=== PATIENT | female | born 1985 | race American Indian/Alaskan Native ===

== ENCOUNTER 2017-07-19 09:20 | Inpatient (IN) | payer OTHER ==
[2017-07-19] MEDS ORDERED: PEPCID IV SCH (10:41)
[2017-07-19] MEDS ORDERED: BICITRA PO SCH (10:41)
[2017-07-19] MEDS ORDERED: REGLAN IV SCH (10:41)
[2017-07-19] MEDS ORDERED: LACTATED RINGERS 2,000 ML ONE (10:46)
[2017-07-19] MEDS ORDERED: LACTATED RINGERS 1,000 ML IV SCH (11:00)
--- NOTE | 2017-07-19 11:01 | History and Physical Report ---
History of Present Illness Date of examination: 07/19/17 Date of admission: 07/19/17 09:20 Chief complaint: C section for breech presentation History of present illness: Pt is a 32yo BF EDC 07/23/17; EGA 39 3/7 weeks presents for a C section due to persistent breech presentation. She received late care at [facility] since 33 weeks as a transfer pt, and course has been unremarkable except for persistent breech presentation. records are available and GBS is negative. Past History Past Medical History: no pertinent history Past Surgical History: no surgical history Family/Genetic History: none Social history: no significant social history, - Obstetrical History Expected Date of Delivery: 07/23/17 Actual Gestation: 39 Week(s) 3 Day(s) : 1 Medications and Allergies Allergies Allergy/AdvReac Type Severity Reaction Status Date / Time Penicillins Allergy Hives Verified 07/19/17 11:06 Home Medications Medication Instructions Recorded Confirmed Last Taken Type Vitamin Tablet 1 tab PO QDAY 07/19/17 07/19/17 07/18/17 14:00 History Active Meds: Active Medications Citric Acid/Sodium Citrate (Bicitra) 30 ml PO ONCE NANCY Stop: 07/19/17 23:00 Famotidine (Pepcid) 20 mg IV ONCE NANCY Stop: 07/19/17 23:00 Lactated Ringer's (Lactated Ringers) 1,000 mls @ 2,250 mls/hr IV PREOP NANCY Stop: 07/20/17 11:27 Last Admin: 07/19/17 10:49 Dose: 2,250 mls/hr Oxytocin/Sodium Chloride (Pitocin/Ns 20 Unit/1000ml Drip) 20 units in 1,000 mls @ 0 mls/hr IV TITR NANCY PRN Reason: As Directed Metoclopramide HCl (Reglan) 10 mg IV ONCE NANCY Stop: 07/19/17 23:00 Review of Systems All systems: negative - Vital Signs Vital signs: Vital Signs Temp Pulse Resp BP Pulse Ox 98.4 F 80 18 119/78 98 07/19/17 09:52 07/19/17 09:52 07/19/17 09:52 07/19/17 09:52 07/19/17 09:52 Temp Pulse Resp BP Pulse Ox 98.4 F 81 18 119/78 100 07/19/17 09:52 07/19/17 10:33 07/19/17 09:52 07/19/17 09:52 07/19/17 10:33 - Physical Exam Breasts: Positive: deferred Cardiovascular: Regular rate Lungs: Positive: Clear to auscultation Abdomen: Positive: normal appearance Genitourinary (Female): Positive: normal external genitalia Vagina: Positive: normal moisture Uterus: Positive: enlarged Extremities: Positive: normal - Obstetrical FHR: category 1 Uterine Contraction Monitor Mode: External Results Result Diagrams: 07/19/17 10:30 All other labs normal. Ultrasound: image reviewed (Breech) Assessment and Plan - Patient Problems (1) 39 weeks gestation of Onset Date: 07/19/17 Current Visit: Yes Status: Acute Plan to address problem: A: IUP @ 39 3/7 weeks Breech presentation P: Admit to L&D for Primary C Section (2) Breech presentation Onset Date: 07/19/17 Current Visit: Yes Status: Acute Qualifiers: Fetus number: single or unspecified fetus Qualified Code(s): O32.1XX0 - Maternal care for breech presentation, not applicable or unspecified
[2017-07-19 11:13] LABS: Basophils # (Auto) 0.1 K/mm3 (0.0-0.1); Basophils % (Auto) 0.8 % (0.0-1.8); Eosinophils # (Auto) 0.1 K/mm3 (0.0-0.4); Hematocrit 38.5 % (30.3-42.9); Hemoglobin 12.8 gm/dl (10.1-14.3); Lymphocytes # (Auto) 0.9 K/mm3 (1.2-5.4); Lymphocytes % (Auto) 14.1 % (13.4-35.0); Mean Corpuscular HGB Conc 33 % (30-34); Mean Corpuscular Hemoglobin 28 pg (28-32); Mean Corpuscular Volume 85 fl (79-97); Monocytes # (Auto) 0.6 K/mm3 (0.0-0.8); Monocytes % (Auto) 9.4 % (0.0-7.3); Platelet Count 228 K/mm3 (140-440); Red Blood Count 4.54 M/mm3 (3.65-5.03); Red Cell Distribution Width 13.6 % (13.2-15.2)
[2017-07-19] MEDS ORDERED: CLEOCIN 900 MG/50 mL 900 MG/50 ML BAG IV ONE (11:33)
[2017-07-19] MEDS ORDERED: WATER FOR IRRIG STERILE IR ONE (12:00)
[2017-07-19] MEDS ORDERED: NACL 0.9% IR ONE (12:00)
[2017-07-19] MEDS ORDERED: BENADRYL IV PRN (12:03)
[2017-07-19] MEDS ORDERED: NARCAN 0.4 MG/1 ML IV PRN ×2 (12:03→13:55)
[2017-07-19] MEDS ORDERED: ZOFRAN IV PRN (12:03)
[2017-07-19] MEDS ORDERED: MORPHINE IV PRN (12:03)
[2017-07-19] MEDS ORDERED: PHENERGAN PR PRN (12:03)
--- NOTE | 2017-07-19 12:03 | Anesthesia Day of Surgery ---
Anesthesia Day of Surgery - Day of Surgery Patient Examined: Yes Patient H&P Reviewed: Yes Patient is NPO: Yes
--- NOTE | 2017-07-19 12:03 | Anesthesia Consultation ---
Anesthesia Consult and Med Hx Date of service: 07/19/17 - Airway Anesthetic Teeth Evaluation: Good ROM Head & Neck: Adequate Mental/Hyoid Distance: Adequate Mallampati Class: Class II Intubation Access Assessment: Probably Good - Pre-Operative Health Status ASA Pre-Surgery Classification: ASA2 Proposed Anesthetic Plan: Epidural, Spinal - Pulmonary Hx Asthma: No COPD: No Hx Pneumonia: No - Cardiovascular System Hx Hypertension: No - Central Nervous System Hx Seizures: No Hx Psychiatric Problems: No - Endocrine Hx Renal Disease: No Hx End Stage Renal Disease: No Hx Hypothyroidism: No Hx Hyperthyroidism: No - Hematic Hx Sickle Cell Disease: No - Other Systems Hx Alcohol Use: No
[2017-07-19] MEDS ORDERED: MORPHINE ONE (12:08)
[2017-07-19] MEDS ORDERED: GARAMYCIN/NS 80 MG/100 ML 100 ML IV SCH (12:30)
[2017-07-19] MEDS ORDERED: CLEOCIN 900 MG/50 mL 900 MG/50 ML BAG IV SCH (13:00)
[2017-07-19] MEDS ORDERED: SODIUM CHLORIDE FLUSH SYRINGE 10 ML IV NR (13:00)
[2017-07-19] MEDS ORDERED: NEO SYNEPHRINE/NS Syringe(OR USE) IV ONE (13:23)
[2017-07-19] MEDS: PITOCin/NS 20 UNIT/1000ML DRIP 20 UNITS/1,000 ML BAG IV SCH ×2 (13:28→13:29)
[2017-07-19] MEDS ORDERED: LANSINOH TP PRN (13:55)
[2017-07-19] MEDS ORDERED: MILK OF MAGNESIA PO PRN (13:55)
[2017-07-19] MEDS ORDERED: MYLICON PO PRN (13:55)
[2017-07-19] MEDS ORDERED: TUCKS PAD TP PRN (13:55)
[2017-07-19] MEDS ORDERED: NORCO 5/325 PO PRN (13:55)
[2017-07-19] MEDS ORDERED: SODIUM CHLORIDE FLUSH SYRINGE 10 ML IV SCH (14:00)
[2017-07-19] MEDS ORDERED: PITOCin/NS 20 UNIT/1000ML DRIP 20 UNITS/1,000 ML BAG IV SCH (14:00)
--- NOTE | 2017-07-19 14:03 | Post Anesthesia Evaluation ---
- Post Anesthesia Evaluation Patient Participated: Yes Airway Patent: Yes Stable Respiratory Function: Yes Temp > 96.8F: Yes Pain Manageable: Yes Adequeate Hydration: Yes Anesthesia Complications: No Block Receding Appropriately: Yes
--- NOTE | 2017-07-19 14:07 | Operative Report ---
Operative Report Operative Report: Date of procedure: 07/19/2017 Pre-operative diagnosis: 1. Intrauterine at 39-3/7 weeks 2. Breech presentation Post-operative diagnosis: Same with uterine fibroids Procedure name(s): Primary low transverse section Surgeon: Kam Verdin MD Java Jsf Developer: None Anesthesia: Spinal anesthesia by Dr. Massey EBL: 500 mls Findings: A 2961 g female Apgars 8 at 1 minute and 9 at 5 minutes. Roshan breech presentation. Clear amniotic fluid. Uterus with multiple small serosal myomas. Normal tubes and ovaries bilaterally. Procedure: After the patient was prepped and draped in usual sterile fashion, and after satisfactory level of epidural anesthesia was obtained, the skin knife was used to make a transverse skin incision. The incision was excised down to layer of the fascia, which was nicked in the midline and extended laterally using the Bovie cautery. The rectus muscles were dissected off the rectus fascia both superiorly and inferiorly. The rectus bellies in the midline, and the peritoneum was entered under direct visualization. The peritoneal incision was extended superiorly and inferiorly. A bladder flap was created and the bladder blade was then placed. The uterus was scored in a curvilinear linear fashion, entered in the midline revealing clear amniotic fluid. The infant's roshan breech was delivered onto the surgical field, followed by the rest of the infant's body, then the oropharynx and nasopharynx were bulb suctioned. The cord was doubly clamped and cut and the was handed to the waiting respiratory team. The placenta was manually removed from the uterus, and the uterus removed from its normal anatomical position. The uterus has multiple small fibroids on the serosal layer. After gentle uterine lavage, the incision was inspected and found to be without extensions. It was then closed in 2 layers using 0 Vicryl suture in a running interlocking fashion , the second layer imbricating the first. After good hemostasis was achieved, copious amounts or irrigation was performed, and the gutters were suctioned free of blood and blood clots. Tisseel sealant was sprayed across the uterine incision. The uterus was then returned to its normal anatomical position, and after excellent hemostasis assured, the peritoneum was re-approximated using 3- 0 Vicryl suture in a running interlocking fashion, and then the rectus muscles were re-approximated using 3-0 Vicryl suture in a [id number] configuration. The fascia was then re-approximated using 0 Vicryl suture in running interlocking fashion. The subcutaneous layer was made hemostatic using Bovie cautery, the Tisseel sealant was sprayed across the fascial incision and the skin edges re-approximated using 4-0 Vicryl suture in a sub-cuticular fashion. Patient tolerated the procedure well was transported to recovery in stable condition.
[2017-07-19] MEDS: D5LR 1,000 ML IV SCH ×2 (14:22→22:58)
[2017-07-19] MEDS: TORADOL IV PRN (15:20)
[2017-07-19] MEDS: CLEOCIN 600 MG/50 mL 600 MG/50 ML BAG IV SCH (18:37)
[2017-07-20] MEDS: TORADOL IV PRN (01:36)
[2017-07-20] MEDS: CLEOCIN 600 MG/50 mL 600 MG/50 ML BAG IV SCH (01:36)
[2017-07-20 05:12] LABS: Hematocrit 34.4 % (30.3-42.9); Hemoglobin 11.3 gm/dl (10.1-14.3)
[2017-07-20] MEDS ORDERED: BOOSTRIX IM ONE (06:00)
--- NOTE | 2017-07-20 09:25 | Progress Note ---
Assessment and Plan - Patient Problems (1) 39 weeks gestation of Onset Date: 07/19/17 Current Visit: Yes Status: Resolved (2) Breech presentation Onset Date: 07/19/17 Current Visit: Yes Status: Resolved Qualifiers: Fetus number: single or unspecified fetus Qualified Code(s): O32.1XX0 - Maternal care for breech presentation, not applicable or unspecified (3) Status post Onset Date: 07/20/17 Current Visit: Yes Status: Resolved Plan to address problem: A: S/P C Section - POD #1 Doing well P: Continue RPOC Anticipate discharge in 24-48hrs Subjective - Subjective Date of service: 07/20/17 Principal diagnosis: s/p C Section - POD #1 Interval history: Pt is feeling well without complaints. Bleeding improved.Tolerating a liquid diet without nausea or vomiting. Patient reports: appetite normal, voiding normally, dizzy ambulation, ambulating normally, no flatus [place]: doing well, bottle feeding Objective - Vital Signs Latest vital signs: Vital Signs Temp Pulse Resp BP BP Pulse Ox 07/20/17 03:00 99 F 78 18 116/74 07/20/17 00:04 98.9 F 83 18 117/70 07/19/17 21:00 98.5 F 77 18 112/70 07/19/17 16:22 97.6 F 64 18 102/70 97 07/19/17 14:35 97.8 F 97 H 18 133/86 98 07/19/17 14:20 95 H 29 H 136/85 100 07/19/17 14:16 97.6 F 07/19/17 14:15 90 15 128/87 100 07/19/17 14:10 90 16 132/89 100 07/19/17 14:05 81 20 133/86 100 07/19/17 14:00 88 21 128/85 100 07/19/17 13:55 92 H 22 134/88 99 07/19/17 13:50 68 18 116/74 99 07/19/17 13:45 89 14 135/89 100 07/19/17 13:40 75 14 131/86 99 07/19/17 13:35 84 19 126/89 99 07/19/17 13:30 93 H 15 125/87 100 07/19/17 13:25 84 12 119/79 99 07/19/17 13:23 99 07/19/17 13:21 97.6 F 07/19/17 10:33 81 100 07/19/17 10:28 99 H 99 07/19/17 10:23 86 99 07/19/17 10:15 79 99 07/19/17 10:10 82 98 07/19/17 10:05 82 99 07/19/17 10:00 86 99 07/19/17 09:52 98.4 F 80 18 119/78 98 Intake and Output 07/19/17 07/20/17 07/20/17 22:59 06:59 14:59 Intake Total 1170 200 Output Total 275 800 Balance 895 -600 Intake: IV 1050 CLEOCIN 600 MG/50 mL 600 50 mg In 50 ml @ 100 mls/hr IV Q8H NANCY Rx#:[id number] D5lr 1,000 ml @ 125 mls/ 1000 hr IV DIRECT NANCY Rx#: [id number] Oral 120 Intake, Free Water 200 Output: Urine 275 800 Indwelling Catheter 275 800 Other: Total, Intake Amount 120 Total, Output Amount 275 800 - Exam Breasts: Present: deferred Cardiovascular: Present: Regular rate Lungs: Present: Clear to auscultation Abdomen: Present: normal appearance, soft Uterus: Present: normal, firm, fundal height below umbilicus Extremities: Present: normal Incision: Present: normal, dry, intact, dressed - Labs Labs: Abnormal lab results 07/19/17 Range/Units 10:30 [place] % (Auto) 9.4 H (0.0-7.3) % Lymph # 0.9 L (1.2-5.4) K/mm3 Seg Neutrophils % 74.7 H (40.0-70.0) % Laboratory Tests 07/19/17 07/19/17 07/20/17 10:30 10:30 04:25 WBC 6.4 RBC 4.54 Hgb 12.8 11.3 Hct 38.5 34.4 MCV 85 MCH 28 MCHC 33 RDW 13.6 Plt Count 228 Lymph % (Auto) 14.1 [place] % (Auto) 9.4 H Eos % (Auto) 1.0 Baso % (Auto) 0.8 Lymph # 0.9 L [place] # 0.6 Eos # 0.1 Baso # 0.1 Seg Neutrophils % 74.7 H Seg Neutrophils # 4.7 Blood Type A POSITIVE Antibody Screen Negative
[2017-07-20] MEDS: MOTRIN PO PRN (10:22)
[2017-07-20] MEDS: FEOSOL PO SCH (10:22)
[2017-07-20] MEDS: PRENATAL VITAMIN PO SCH (10:22)
[2017-07-20] MEDS ORDERED: M-M-R II VACCINE SUB-Q ONE (13:57)
[2017-07-20] MEDS: PERCOCET 5/325 PO PRN (18:24)
[2017-07-21] MEDS: PERCOCET 5/325 PO PRN ×3 (01:15→18:13)
[2017-07-21] MEDS: MOTRIN PO PRN ×4 (01:15→23:42)
[2017-07-21] MEDS: PRENATAL VITAMIN PO SCH (12:02)
[2017-07-21] MEDS: FEOSOL PO SCH (12:03)
--- NOTE | 2017-07-22 10:59 | Progress Note ---
Assessment and Plan POD # 3 s/p -Doing well P: -Will discharge home today -Follow-up in clinic in 1-2 weeks for incision check - Patient Problems (1) Status post Onset Date: 07/20/17 Current Visit: Yes Status: Resolved Subjective - Subjective Date of service: 07/22/17 Principal diagnosis: s/p C Section - POD #3 Interval history: Patient seen and examined, stable doing well no issues. No fever or chills, and ambulating without difficulty adequate bowel bladder function Patient reports: appetite normal, voiding normally, pain well controlled, flatus , ambulating normally, no dizzy ambulation, no nauseated [place]: doing well Objective - Vital Signs Latest vital signs: Vital Signs Temp Pulse Resp BP Pulse Ox 07/22/17 05:50 18 07/22/17 00:30 98.2 F 65 18 118/72 99 07/21/17 23:42 18 07/21/17 16:40 98 F 67 18 130/85 Intake and Output 07/21/17 07/22/17 07/22/17 23:59 07:59 15:59 Intake Total 480 240 Balance 480 240 Intake: Oral 480 240 Other: Total, Intake Amount 480 240 # Voids Void 1 - Exam Abdomen: Present: normal appearance, soft. Absent: distention, tenderness, guarding, rigidity Uterus: Present: firm, fundal height below umbilicus Extremities: Present: normal Incision: Present: dry, intact
--- NOTE | 2017-07-22 11:00 | Discharge Summary ---
Providers - Providers Date of Admission: 07/19/17 09:20 Date of discharge: 07/22/17 Attending physician: NORMA WOMACK Primary care physician: NORMA WOMACK Hospitalization Reason for admission: section, IUP at term Delivery: Procedure: primary low transverse (IUP at term in breech presentation) Incision: normal, dry, intact Other procedures: none complications: none Discharge diagnosis: IUP at term delivered, other (Primary LTCS at term for Breech) Hospital course: Uncomplicated hospital course Condition at discharge: Good Disposition: DC-01 TO HOME OR SELFCARE - Discharge Diagnoses (1) Status post Status: Resolved Plan - Discharge Medications Prescriptions: Ferrous Sulfate [Feosol 325 MG tab] 325 mg PO BID #60 tablet HYDROcodone/APAP 5-325 [[place] 5/325] 1 each PO Q6HR PRN #30 tablet PRN Reason: Pain Ibuprofen [Motrin] 800 mg PO Q8HR PRN #30 tablet PRN Reason: Moder Pain Unrelieved By [place] Pnv No.95/Ferrous Fum/Folic AC [Prenavite Tablet] 1 each PO DAILY #30 tablet - Provider Discharge Summary Activity: no sex for 6 weeks, no heavy lifting 4 weeks, no strenuous exercise Diet: routine Additional instructions: [] Smoking cessation referral if applicable(refer to patient education folder for contact #) [] Refer to [facility] Booklet Call your doctor immediately for: * Fever > 100.5 * Heavy vaginal bleeding ( >1 pad per hour) * Severe persistent headache * Shortness of breath * Reddened, hot, painful area to leg or breast * Drainage or odor from incision. * Keep incision clean and dry at all times and follow doctor's instructions regarding bathing/showering - Follow up plan Follow up: NORMA WOMACK MD [Primary Care Provider] - 7 Days
--- NOTE | 2017-07-22 11:02 | Event Note ---
Date: 07/22/17 Late Entry: Patient seen yesterday 07/21/2017, no note placed. Incision dressing removed yesterday incision looks clean dry and intact
[2017-07-22] MEDS: PRENATAL VITAMIN PO SCH (11:07)
[2017-07-22] MEDS: FEOSOL PO SCH (11:07)
[2017-07-22] MEDS: PERCOCET 5/325 PO PRN (13:00)
[2017-07-22] MEDS: MOTRIN PO PRN (13:00)
[2017-07-22 14:24] VITALS: BP 138/79
== END 2017-07-22 13:40 | disposition home or self-care (01) | DRG 766 ==
LOC: APU 09:20 → OB 14:53
PROVIDERS: ADMIT Obstetrics & Gynecology; ATTEND Obstetrics & Gynecology
PROC: 10D00Z1 Extraction of Products of Conception, Low, Open Approach (ICD-10-PCS; principal; 2017-07-19)
PROC: 3E0234Z Introduction of Serum, Toxoid and Vaccine into Muscle, Percutaneous Approach (ICD-10-PCS; 2017-07-20)
DX: O32.1XX0 Maternal care for breech presentation, not applicable or unspecified (principal); Z37.0 Single live birth; Z3A.39 39 weeks gestation of pregnancy; Z88.0 Allergy status to penicillin; Z23 Encounter for immunization
CPT/HCPCS: 36415; 85014; 85018; 85025; 86850; 86900; 86901; 99211; C9250; G0463; J1580; J1885; J2270; J2370; J2405; J2590; J2765; J7120; J7121